=== PATIENT | male | born 1985 | race Caucasian/White ===

== ENCOUNTER 2021-06-02 23:15 | Emergency (ER) | payer OTHER ==
[~2021-06-02] VITALS: Ht 170.2 cm; Wt 127.0 kg
[~2021-06-02 23:15] MED LIST: CIPR500 PO; DIPATR PO; HYDACE5 PO; METPRE4DP PO; NAPR500 PO; NEOPOLHCSU OT; PROC10 PO; PROM25 PO; Percocet 5-3251 EACH PO; RXHYDACE PO; SULTRIDS PO
== END 2021-06-03 03:46 | disposition home or self-care (01) ==
LOC: ER 23:15
DX: S30.1XXA Contusion of abdominal wall, initial encounter (principal); X58.XXXA Exposure to other specified factors, initial encounter
CPT/HCPCS: 71046; A9270